=== PATIENT | male | born 1990 | race Hispanic/Latino ===

== ENCOUNTER 2017-11-03 21:09 | Inpatient (IN) | payer OTHER ==
[~2017-11-03] VITALS: Ht 175.3 cm; Wt 108.6 kg
[~2017-11-03 21:09] MED LIST: FENOFIBRATE145 MG PO; HUMALOG MI100 UNIT/4 SQ; Insulin Detemir SQ; LEVEMIR 3M100 UNITS/; LIPITOR20 MG PO; METOCLOPRAMIDE10 MG PO; OMEPRAZOLE40 MG PO; ZOFRAN ODT4 MG PO
--- NOTE | 2017-11-03 22:20 | Diagnostic Imaging Report ---
ANKLE 3+ VIEWS LEFT, FOOT LEFT COMPLETE Comparison: None Clinical history: \S\EVAL FOR OSTEOMYELITIS \S\[id number] \S\0 \S\Y Findings: Mild soft tissue swelling particularly about the foot. No acute fracture, dislocation or bony destruction. Impression: No radiographic evidence of osteomyelitis. Signed by: Dr Sol Almaguer MD on 11/03/2017 10:16 PM
--- NOTE | 2017-11-03 22:20 | Diagnostic Imaging Report ---
ANKLE 3+ VIEWS LEFT, FOOT LEFT COMPLETE Comparison: None Clinical history: \S\EVAL FOR OSTEOMYELITIS \[id number] \S\0 \S\Y Findings: Mild soft tissue swelling particularly about the foot. No acute fracture, dislocation or bony destruction. Impression: No radiographic evidence of osteomyelitis. Signed by: Dr Sol Almaguer MD on 11/03/2017 10:16 PM
[2017-11-03 22:36] LABS: BASOPHILS # (AUTO) 0.1 (0.0-0.1); BASOPHILS % 0.7 % (0.0-1.0); EOSINOPHILS # (AUTO) 0.1 (0.0-0.4); EOSINOPHILS % 1.1 % (0.0-6.0); HEMATOCRIT 41.7 % (38.2-49.6); HEMOGLOBIN 14.9 g/dL (14.0-18.0); LYMPHOCYTES # (AUTO) 2.1 (1.0-3.2); LYMPHOCYTES % 29.6 % (18.0-39.1); MEAN CORPUSCULAR HEMOGLOBIN 30.5 pg (28-32); MEAN CORPUSCULAR HGB CONC 35.7 g/dL (31-35); MEAN CORPUSCULAR VOLUME 85.3 fL (81-99); MONOCYTES # (AUTO) 0.6 (0.2-0.8); MONOCYTES % 7.7 % (4.4-11.3); NEUTROPHILS # (AUTO) 4.3 (2.1-6.9); NEUTROPHILS % 60.3 % (38.7-80.0); PLATELET COUNT 266 x10e3/uL (140-360); RED BLOOD COUNT 4.89 x10e6/uL (4.3-5.7); RED CELL DISTRIBUTION WIDTH 11.6 % (11.7-14.4)
[2017-11-03 22:53] LABS: ALANINE AMINOTRANSFERASE 47 IU/L (0-55); ALBUMIN 3.1 g/dL (3.5-5.0); ALBUMIN/GLOBULIN RATIO 0.6 (0.8-2.0); ALKALINE PHOSPHATASE 84 IU/L (40-150); BLOOD UREA NITROGEN 11 mg/dL (7-26); BUN/CREATININE RATIO 12 (6-25); CALCIUM 9.6 mg/dL (8.4-10.2); CARBON DIOXIDE 27 mmol/L (22-29); CHLORIDE 97 mmol/L (98-107); CREATININE, SERUM 0.92 mg/dL (0.72-1.25); EST GLOMERULAR FILTRATION RATE > 60 ML/MIN (60-); GLUCOSE 356 mg/dL (74-118); SODIUM 135 mmol/L (136-145)
[2017-11-03] MEDS ORDERED: ACETAMINOPHEN 325 MG TAB PO PRN (23:00)
[2017-11-03] MEDS ORDERED: ONDANSETRON HCL INJ 2 MG/ML VIAL IV PRN (23:00)
[2017-11-03] MEDS ORDERED: DEXTROSE 50% SYRINGE 50 ML IV PRN (23:00)
[2017-11-03] MEDS: PIPER-TAZ 3.375 GM 50 ML IV SCH (23:00)
[2017-11-03] MEDS: VANCOMYCIN 1GM/NS 250 ML 250 ML IV SCH (23:00)
[2017-11-03] MEDS ORDERED: MORPHINE SULFATE 2 MG/ML SYR IV PRN (23:00)
[2017-11-03] MEDS ORDERED: SODIUM CHLORIDE 0.9% 1000ML 1,000 ML IV ONE (23:00)
[2017-11-03] MEDS: INSULIN REGULAR, HUMAN 100 UNIT/1 ML 3ML VIAL SQ ONE ×2 (23:00→23:22)
[2017-11-04 01:30] VITALS: BP 113/76
[2017-11-04 04:00] VITALS: BP 117/66
[2017-11-04] MEDS ORDERED: SODIUM CHLORIDE 0.9% 250ML 250 ML ONE (05:01)
[2017-11-04] MEDS: PIPER-TAZ 3.375 GM 50 ML IV SCH ×3 (05:55→21:34)
[2017-11-04] MEDS: INSULIN REGULAR, HUMAN 100 UNIT/1 ML 3ML VIAL SQ SCH ×4 (07:30→21:00)
[2017-11-04 07:57] LABS: BASOPHILS % 0.5 % (0.0-1.0); EOSINOPHILS # (AUTO) 0.1 (0.0-0.4); HEMATOCRIT 37.9 % (38.2-49.6); HEMOGLOBIN 13.4 g/dL (14.0-18.0); LYMPHOCYTES # (AUTO) 1.8 (1.0-3.2); LYMPHOCYTES % 28.3 % (18.0-39.1); MEAN CORPUSCULAR HEMOGLOBIN 30.1 pg (28-32); MEAN CORPUSCULAR HGB CONC 35.4 g/dL (31-35); MEAN CORPUSCULAR VOLUME 85.2 fL (81-99); MONOCYTES # (AUTO) 0.6 (0.2-0.8); MONOCYTES % 9.1 % (4.4-11.3); NEUTROPHILS # (AUTO) 3.8 (2.1-6.9); NEUTROPHILS % 60.6 % (38.7-80.0); PLATELET COUNT 255 x10e3/uL (140-360); RED BLOOD COUNT 4.45 x10e6/uL (4.3-5.7); RED CELL DISTRIBUTION WIDTH 11.5 % (11.7-14.4)
[2017-11-04 08:00] VITALS: BP 118/69
[2017-11-04 08:40] LABS: ALANINE AMINOTRANSFERASE 36 IU/L (0-55); ALBUMIN 2.8 g/dL (3.5-5.0); ALBUMIN/GLOBULIN RATIO 0.7 (0.8-2.0); ALKALINE PHOSPHATASE 71 IU/L (40-150); ANION GAP 13.6 mmol/L (8-16); BLOOD UREA NITROGEN 13 mg/dL (7-26); BUN/CREATININE RATIO 16 (6-25); CALCIUM 8.7 mg/dL (8.4-10.2); CARBON DIOXIDE 24 mmol/L (22-29); CHLORIDE 103 mmol/L (98-107); CREATININE, SERUM 0.83 mg/dL (0.72-1.25); EST GLOMERULAR FILTRATION RATE > 60 ML/MIN (60-); GLUCOSE 235 mg/dL (74-118); POTASSIUM 3.6 mmol/L (3.5-5.1); SODIUM 137 mmol/L (136-145)
[2017-11-04] MEDS: VANCOMYCIN 1GM/NS 250 ML 250 ML IV SCH ×2 (11:00→22:50)
[2017-11-04 12:00] VITALS: BP 121/71
[2017-11-04 14:05] LABS: CHOL/HDL RATIO 6.8 (3.9-4.7); CHOLESTEROL 191 MD/DL (0-199); HDL CHOLESTEROL 28 MG/DL (40-60); TRIGLYCERIDES 488 MG/DL (0-149)
[2017-11-04 14:27] LABS: FREE T4 (FREE THYROXINE) 1.09 ng/dL (0.9-1.8); THYROID STIMULATING HORMONE 2.662 uIU/mL (0.350-4.940)
--- NOTE | 2017-11-04 14:43 | Cardiology Report ---
DATE OF STUDY: November 03, 2017 DOPPLER SCAN OF THE LEFT LEG VEINS ATTENDING PHYSICIAN: Dr. Caridad Andres. A 27-year-old male. The left leg veins were interrogated using the duplex scanning method. The veins were compressible. There were no definite deep venous thromboses. CONCLUSIONS: 1. No definite deep venous thrombosis involving the left leg veins. 2. The right leg was not studied. Job#: [id number] EV cc: CARIDAD ANDRES MD
--- NOTE | 2017-11-04 15:59 | Consultation ---
DATE OF CONSULTATION: November 04, 2017 ENDOCRINE CONSULTATION This is a patient of Dr. Cj Hilton. Thank you very much for referring this patient. HISTORY OF PRESENT ILLNESS: This is a 27-year-old gentleman who is referred to me for evaluation of diabetes mellitus. Patient tells me that he is a known diabetic for almost 4 years. Patient stopped taking medication about 2 years back. He came to the hospital with the history of swelling and redness of the left leg. Patient also is complaining of weight loss, polyuria, polydipsia. He has a family history of diabetes mellitus. In the past about 2 years back, patient was on a combination of NPH and regular insulin. Patient does not smoke. He is a social drinker. PHYSICAL EXAMINATION: GENERAL: Today patient is alert, awake, a little bit apprehensive. Moderately overweight. VITAL SIGNS: His heart rate is around 78. Blood pressure 140/80 mmHg. HEENT: Examination essentially unremarkable. Thyroid is palpable. Clinically he is near euthyroid. CHEST: Bilateral vesicular breathing. He has mild bronchospasm. CARDIAC: Both 1st and 2nd heart sounds. There is no 3rd or 4th heart sound. Ejection sound grade 2/6. LAB: At the time of admission, his blood sugar was 356. Anion gap was normal. CLINICAL IMPRESSION: Diabetes mellitus type 2, uncontrolled with complications. Noncompliance with medications. Cellulitis of the left leg. The plan at this time is to do a hemoglobin A1c, thyroid function test. Monitor his blood sugars. Also do a lipid profile. Will put him on the basal bolus insulin therapy. Patient needs extensive diabetic and dietary education as well. Thanks again for referring this patient. I will be following this patient with you. Job#: [id number] EV [place]
[2017-11-04 16:00] VITALS: BP 127/73
[2017-11-04] MEDS: INSULIN LISPRO 100 UNIT/1 ML 3ML VIAL SQ SCH (16:30)
[2017-11-04 20:00] VITALS: BP 120/59
[2017-11-04] MEDS ORDERED: INSULIN DETEMIR 100 UNIT/ML PEN SQ SCH (21:00)
[2017-11-05] VITALS: BP_SYST 118; BP_SYST 128; BP_DIAS 70; BP_DIAS 73
[2017-11-05 04:00] VITALS: BP 128/70
[2017-11-05] MEDS: PIPER-TAZ 3.375 GM 50 ML IV SCH ×3 (05:32→21:50)
[2017-11-05 07:16] LABS: BASOPHILS # (AUTO) 0.1 (0.0-0.1); BASOPHILS % 0.7 % (0.0-1.0); EOSINOPHILS # (AUTO) 0.1 (0.0-0.4); HEMATOCRIT 37.3 % (38.2-49.6); HEMOGLOBIN 13.3 g/dL (14.0-18.0); LYMPHOCYTES # (AUTO) 1.8 (1.0-3.2); LYMPHOCYTES % 25.7 % (18.0-39.1); MEAN CORPUSCULAR HEMOGLOBIN 30.7 pg (28-32); MEAN CORPUSCULAR HGB CONC 35.7 g/dL (31-35); MEAN CORPUSCULAR VOLUME 86.1 fL (81-99); MONOCYTES # (AUTO) 0.5 (0.2-0.8); MONOCYTES % 7.5 % (4.4-11.3); NEUTROPHILS # (AUTO) 4.5 (2.1-6.9); NEUTROPHILS % 64.7 % (38.7-80.0); PLATELET COUNT 230 x10e3/uL (140-360); RED BLOOD COUNT 4.33 x10e6/uL (4.3-5.7); RED CELL DISTRIBUTION WIDTH 11.5 % (11.7-14.4)
[2017-11-05] MEDS: INSULIN REGULAR, HUMAN 100 UNIT/1 ML 3ML VIAL SQ SCH ×4 (07:30→21:00)
[2017-11-05] MEDS: INSULIN LISPRO 100 UNIT/1 ML 3ML VIAL SQ SCH ×3 (07:30→16:30)
[2017-11-05 07:44] LABS: ANION GAP 11.9 mmol/L (8-16); BLOOD UREA NITROGEN 13 mg/dL (7-26); BUN/CREATININE RATIO 15 (6-25); CALCIUM 8.8 mg/dL (8.4-10.2); CARBON DIOXIDE 23 mmol/L (22-29); CHLORIDE 104 mmol/L (98-107); CREATININE, SERUM 0.86 mg/dL (0.72-1.25); EST GLOMERULAR FILTRATION RATE > 60 ML/MIN (60-); GLUCOSE 232 mg/dL (74-118); POTASSIUM 3.9 mmol/L (3.5-5.1); SODIUM 135 mmol/L (136-145)
[2017-11-05 08:00] VITALS: BP 116/68
[2017-11-05] MEDS: VANCOMYCIN 1GM/NS 250 ML 250 ML IV SCH ×2 (11:00→23:50)
[2017-11-05 12:00] VITALS: BP_SYST 115; BP_SYST 116; BP_DIAS 71; BP_DIAS 76
[2017-11-05 20:00] VITALS: BP 116/64
[2017-11-05] MEDS ORDERED: INSULIN DETEMIR 100 UNIT/ML PEN SQ SCH (21:00)
[2017-11-06] VITALS: BP 122/71
[2017-11-06 04:00] VITALS: BP 118/70
[2017-11-06] MEDS: PIPER-TAZ 3.375 GM 50 ML IV SCH ×3 (05:26→21:18)
[2017-11-06 07:20] VITALS: BP 117/71
[2017-11-06] MEDS: INSULIN REGULAR, HUMAN 100 UNIT/1 ML 3ML VIAL SQ SCH ×4 (07:30→20:44)
[2017-11-06] MEDS: INSULIN LISPRO 100 UNIT/1 ML 3ML VIAL SQ SCH ×3 (07:30→16:30)
[2017-11-06 08:00] VITALS: BP 117/71
[2017-11-06] MEDS: VANCOMYCIN 1GM/NS 250 ML 250 ML IV SCH ×2 (11:55→22:20)
[2017-11-06 12:00] VITALS: BP 113/67
[2017-11-06 20:00] VITALS: BP 118/81
[2017-11-06] MEDS ORDERED: INSULIN DETEMIR 100 UNIT/ML PEN SQ SCH (21:00)
[2017-11-07] VITALS: BP 127/82
[2017-11-07 04:00] VITALS: BP 126/84
[2017-11-07] MEDS: PIPER-TAZ 3.375 GM 50 ML IV SCH ×2 (05:32→14:59)
[2017-11-07 07:51] VITALS: BP 121/75
[2017-11-07] MEDS: INSULIN REGULAR, HUMAN 100 UNIT/1 ML 3ML VIAL SQ SCH ×3 (09:16→16:30)
[2017-11-07] MEDS: INSULIN LISPRO 100 UNIT/1 ML 3ML VIAL SQ SCH ×2 (09:17→12:45)
[2017-11-07] MEDS: VANCOMYCIN 1GM/NS 250 ML 250 ML IV SCH (12:34)
[2017-11-07 16:00] VITALS: BP 123/63
[2017-11-07] MEDS ORDERED: INSULIN LISPRO 100 UNIT/1 ML 3ML VIAL SQ SCH (16:30)
== END 2017-11-07 18:09 | disposition home or self-care (01) | DRG 603 ==
LOC: ER 21:09 → ERHOLD 23:34 → MED/SURG3 11-04 01:20
DX: L03.116 Cellulitis of left lower limb (principal); E11.65 Type 2 diabetes mellitus with hyperglycemia; Z91.14 Patient's other noncompliance with medication regimen; Z79.4 Long term (current) use of insulin
CPT/HCPCS: 36415; 80048; 80053; 80061; 80202; 82948; 83036; 83605; 84439; 84443; 85025; 87040; 93971; 96360; 96365; 96367; 96372; 99284; J2543; J3370; J7030; J7050